=== PATIENT | male | born 1995 | race Caucasian/White ===

== ENCOUNTER 2020-05-13 20:41 | Inpatient (IN) | payer OTHER ==
[~2020-05-13] VITALS: Ht 167.6 cm; Wt 73.2 kg
[~2020-05-13 20:41] MED LIST: ETOMIDATE 20 MG/10 ML ONE; MIDAZOLAM 1 MG/ML, 5ML ONE; PROPOFOL 10 MG/ML, 100ML IV ONE
[2020-05-13] MEDS ORDERED: ZIPRASIDONE 20 MG INJ IM ONE ×2 (20:45→21:00)
[2020-05-13] MEDS ORDERED: ROCURONIUM 10 MG/ML,10ML IVPush ONE (21:00)
[2020-05-13] MEDS ORDERED: MIDAZOLAM 1 MG/ML, 2ML IVPush ONE (21:00)
[2020-05-13] MEDS ORDERED: PLEASE ENTER ALLERGIES MC SCH (21:00)
[2020-05-13] MEDS ORDERED: LORazepam 2 MG/ML, 1ML IVPush ONE (21:00)
[2020-05-13] MEDS ORDERED: PLEASE ENTER HEIGHT AND WEIGHT MC SCH (21:00)
[2020-05-13] MEDS ORDERED: ETOMIDATE 40 MG/20 ML IVPush ONE (21:00)
--- NOTE | 2020-05-13 21:16 | NUR ---
THIS IS A 24 YR OLD MALE AND PER EMS HX OF NARCOTIC OVERDOSE. PT WAS FOUND TO HAVE A ROOM AIR SAT OF 64 AND RESPIRATIONS OF 4. EMS ADMIN 4 MG OF NARCAN TOTAL AND PT WAS BEING BVM. PT BECAME AGGITATED AND COMBATIVE IN AMBULANCE, PT WAS RESTRAINED. EMS ADMIN 4 OF VERSED WITH NO CHANGES. UPON ARRIVAL TO ER PT REMAINS COMBATIVE AND IS RESTRAINED WITH SOFT RESTRAINTS. PT MEDICATED PER VERBAL ORDER FROM MD. PT INTUBATED AT 2111 ET 8.0 AT 24 LIPS. VENT SETTINGS 450 TV, PEEP 10, FIO2 100, RATE 24
[2020-05-13] MEDS ORDERED: FENTANYL PF 100 MCG/2ML ONE (21:27)
[2020-05-13] MEDS ORDERED: LABETALOL 5MG/ML, 20ML IVPush ONE (21:30)
[2020-05-13] MEDS ORDERED: SODIUM CHLORIDE 0.9% 1,000ML IVBOLUS ONE (21:30)
[2020-05-13] MEDS ORDERED: PROPOFOL 100 ML IV PRN (21:30)
[2020-05-13] MEDS ORDERED: MIDAZOLAM 1 MG/ML, 5ML IVPush PRN (21:30)
[2020-05-13] MEDS ORDERED: PIPERACILLIN/TAZO/PMX 3.375GM 50 ML IV ONE (21:30)
[2020-05-13] MEDS ORDERED: LABETALOL 5MG/ML, 20ML ONE (21:32)
[2020-05-13] MEDS ORDERED: FENTANYL PF 100 MCG/2ML IVPush ONE (22:00)
[2020-05-13 22:18] VITALS: BP 165/87
[2020-05-13 22:30] LABS: MEAN CORPUSCULAR HGB CONC 33.9 g/dL (33.2-36.2); PLATELET COUNT 299 x10^3/uL (130-400); RED BLOOD COUNT 5.97 x10^6/uL (4.38-5.82); RED CELL DISTRIBUTION WIDTH 13.4 % (9.4-14.8)
[2020-05-13] MEDS ORDERED: DEXTROSE 4 GM TAB.CHEW PO PRN (22:30)
[2020-05-13] MEDS ORDERED: DEXTROSE 50%, 50ML SYRINGE IVPush PRN (22:30)
[2020-05-13] MEDS ORDERED: NOREPINEPHRINE 8 MG in SODIUM CHLORIDE 0.9% 242 ML IV PRN (22:30)
[2020-05-13] MEDS ORDERED: SENNA/DOCUSATE TABLET NG PRN (22:30)
[2020-05-13] MEDS ORDERED: SENNA 176 MG/5 ML ORAL SOL NG PRN (22:30)
[2020-05-13] MEDS ORDERED: GLUCAGON 1 MG IM PRN (22:30)
[2020-05-13] MEDS ORDERED: PHARMACY MAY ADJ FOR RENAL FX MC SCH (22:30)
[2020-05-13] MEDS ORDERED: LACTULOSE 20 GM/30 ML UDC NG PRN (22:30)
[2020-05-13] MEDS ORDERED: ONDANSETRON 2MG/ML, 2ML IV PRN (22:30)
[2020-05-13] MEDS ORDERED: LIDOCAINE-MPF 1%, 2ML ENDO PRN (22:30)
[2020-05-13] MEDS ORDERED: BISACODYL 10 MG SUPP PR PRN (22:30)
[2020-05-13] MEDS ORDERED: PIPERACILLIN/TAZO/PMX 3.375GM 50 ML ONE (22:36)
[2020-05-13 22:39] LABS: MD YES
[2020-05-13 22:55] LABS: BAND#(MANUAL) 4.71 x10^3/uL; BANDS%(MANUAL) 19 % (0-7); LYMPH#(MANUAL) 1.24 x10^3/uL (1-3.4); LYMPHS% (MANUAL) 5 % (22-44); MONOS#(MANUAL) 0.74 x10^3/uL (0.3-2.7); MONOS% (MANUAL) 3 % (2-9); SEGS% (MANUAL) 73 % (42-75)
[2020-05-13 22:57] LABS: <RBC MORPHOLOGY> NORMAL; PMNS WITH VACUOLES 1+; TOXIC GRAN 1+
[2020-05-13 22:58] LABS: <PLATELET ESTIMATE> ADEQUATE; <PLT MORPHOLOGY> NORMAL PLT MORPH
[2020-05-13] MEDS: SODIUM CHLORIDE FLUSH 10ML SYR IVF SCH (23:00)
[2020-05-13 23:06] LABS: ALANINE AMINOTRANSFERASE 65 U/L (12-78); ALBUMIN 3.1 g/dL (3.4-5.0); ANION GAP 10 mmol/L (5-15); CALCIUM 7.3 mg/dL (8.5-10.1); CHLORIDE 105 mmol/L (98-107)
[2020-05-13 23:09] LABS: ALKALINE PHOSPHATASE 110 U/L (45-117); BILIRUBIN,TOTAL 0.6 mg/dL (0.2-1.0); CREATININE 1.27 mg/dL (0.7-1.3); TOTAL PROTEIN 6.5 g/dL (6.4-8.2)
[2020-05-13 23:11] LABS: SALICYLATE LEVEL < 1.7 mg/dL (2.8-20.0)
[2020-05-13] MEDS: METRONIDAZOLE PMX 500MG/100ML 100 ML IV SCH (23:39)
[2020-05-13] MEDS: SODIUM CHLORIDE 0.9% 1,000 ML IV SCH (23:46)
[2020-05-13] MEDS: HEPARIN 5,000 UNITS/ML, 1ML SQ SCH (23:53)
[2020-05-14 01:21] LABS: AMPHETAMINE SCREEN, URINE Negative (Negative); BARBITURATE SCREEN, URINE Negative (Negative); BENZODIAZEPINE SCREEN, URINE Positive (Negative); CANNABINOID SCREEN, URINE Positive (Negative); COCAINE SCREEN, URINE Negative (Negative); METHADONE SCREEN, URINE Negative (Negative); OPIATE SCREEN, URINE Negative (Negative)
[2020-05-14] MEDS: CEFTRIAXONE PMX 1GM/50ML 50 ML IV SCH (01:26)
[2020-05-14] MEDS: PROPOFOL 100 ML IV PRN ×4 (02:00→14:16)
[2020-05-14 03:54] LABS: MEAN CORPUSCULAR HEMOGLOBIN 31.7 pg (27.5-34.5); MEAN CORPUSCULAR HGB CONC 34.8 g/dL (33.2-36.2); PLATELET COUNT 281 x10^3/uL (130-400); RED BLOOD COUNT 5.47 x10^6/uL (4.38-5.82); RED CELL DISTRIBUTION WIDTH 13.2 % (9.4-14.8)
[2020-05-14] MEDS ORDERED: ACETAMINOPHEN 325 MG TABLET PO PRN (04:00)
[2020-05-14] MEDS ORDERED: SODIUM CHLORIDE 0.9% 1,000ML IVBOLUS ONE (04:00)
[2020-05-14 04:03] LABS: MD YES
[2020-05-14 04:06] LABS: ANION GAP 4 mmol/L (5-15); CALCIUM 6.8 mg/dL (8.5-10.1); CHLORIDE 109 mmol/L (98-107); CREATININE 1.23 mg/dL (0.7-1.3)
[2020-05-14] MEDS: ACETAMINOPHEN 650 MG/20.3 ML UDC PO PRN (04:23)
[2020-05-14 04:52] LABS: BAND#(MANUAL) 2.95 x10^3/uL; BANDS%(MANUAL) 22 % (0-7); LYMPHS% (MANUAL) 6 % (22-44); MONOS#(MANUAL) 0.13 x10^3/uL (0.3-2.7); MONOS% (MANUAL) 1 % (2-9); SEG#(MANUAL) 9.51 x10^3/uL (1.8-6.8); SEGS% (MANUAL) 71 % (42-75)
[2020-05-14 04:53] LABS: <PLATELET ESTIMATE> ADEQUATE; <PLT MORPHOLOGY> NORMAL PLT MORPH; <RBC MORPHOLOGY> NORMAL
[2020-05-14] MEDS: FENTANYL PF 1,000 MCG in SODIUM CHLORIDE 0.9% 80 ML IV PRN ×2 (05:23→14:06)
[2020-05-14] MEDS: METRONIDAZOLE PMX 500MG/100ML 100 ML IV SCH ×3 (05:53→18:41)
[2020-05-14] MEDS ORDERED: MAGNESIUM SULFATE PMX 2GM/50ML 50 ML IV ONE (07:00)
[2020-05-14] MEDS ORDERED: SODIUM POLY SULFONATE UDC 15 GM/60 ML PO ONE (07:00)
[2020-05-14] MEDS: FAMOTIDINE 20 MG/2 ML IVPush SCH ×2 (09:03→19:19)
[2020-05-14] MEDS: CALCIUM CARBONATE 500 MG TAB.CHEW PO SCH ×3 (09:03→19:19)
[2020-05-14] MEDS: HEPARIN 5,000 UNITS/ML, 1ML SQ SCH ×2 (09:03→16:18)
[2020-05-14] MEDS: SODIUM CHLORIDE FLUSH 10ML SYR IVF SCH ×2 (09:03→19:19)
[2020-05-14] MEDS: SODIUM CHLORIDE 0.9% 1,000 ML IV SCH (09:05)
[2020-05-14] MEDS ORDERED: DEXMEDETOMIDINE 400 MCG in SODIUM CHLORIDE 0.9% 96 ML IV PRN (16:00)
[2020-05-15] MEDS: HEPARIN 5,000 UNITS/ML, 1ML SQ SCH ×2 (00:17→08:17)
[2020-05-15] MEDS: METRONIDAZOLE PMX 500MG/100ML 100 ML IV SCH ×3 (00:17→11:55)
[2020-05-15] MEDS: CEFTRIAXONE PMX 1GM/50ML 50 ML IV SCH (02:11)
[2020-05-15 03:47] LABS: BASOPHILS % (AUTO) 0 % (0-1); EOSINOPHILS % (AUTO) 1 % (1-7); LYMPHOCYTES % (AUTO) 19 % (22-44); MEAN CORPUSCULAR HEMOGLOBIN 31.3 pg (27.5-34.5); MEAN CORPUSCULAR HGB CONC 35.1 g/dL (33.2-36.2); MONOCYTES % (AUTO) 8 % (2-9); NEUTROPHILS % (AUTO) 72 % (42-75); PLATELET COUNT 195 x10^3/uL (130-400)
[2020-05-15 03:52] LABS: MD NO
[2020-05-15 03:59] LABS: ANION GAP 5 mmol/L (5-15); CALCIUM 8.1 mg/dL (8.5-10.1); CHLORIDE 111 mmol/L (98-107)
[2020-05-15 04:09] LABS: CREATININE 0.85 mg/dL (0.7-1.3)
[2020-05-15] MEDS: CALCIUM CARBONATE 500 MG TAB.CHEW PO SCH (08:17)
[2020-05-15] MEDS: SODIUM CHLORIDE FLUSH 10ML SYR IVF SCH (08:17)
[2020-05-15] MEDS: ACETAMINOPHEN 650 MG/20.3 ML UDC PO PRN (11:37)
[2020-05-15] MEDS ORDERED: LEVO750T6 PO (11:58)
== END 2020-05-15 13:16 | disposition home or self-care (01) | DRG 917 ==
LOC: MERGE 20:41 → EDBD 20:41 → ED 22:41 → EDIP 22:59 → CCU 23:23
PROVIDERS: ADMIT Family Medicine; ATTEND Internal Medicine
PROC: 0BH17EZ Insertion of Endotracheal Airway into Trachea, Via Natural or Artificial Opening (ICD-10-PCS; principal; 2020-05-13)
PROC: 5A1935Z Respiratory Ventilation, Less than 24 Consecutive Hours (ICD-10-PCS; 2020-05-13)
PROC: 02HV33Z Insertion of Infusion Device into Superior Vena Cava, Percutaneous Approach (ICD-10-PCS; 2020-05-13)
DX: T42.4X1A Poisoning by benzodiazepines, accidental (unintentional), initial encounter (principal); J69.0 Pneumonitis due to inhalation of food and vomit; G93.41 Metabolic encephalopathy; J96.01 Acute respiratory failure with hypoxia; E87.1 Hypo-osmolality and hyponatremia; Z99.11 Dependence on respirator [ventilator] status; R56.9 Unspecified convulsions; I10 Essential (primary) hypertension; R04.0 Epistaxis; E87.5 Hyperkalemia; Y92.89 Other specified places as the place of occurrence of the external cause; Z79.899 Other long term (current) drug therapy
CPT/HCPCS: 36415; 36600; 71045; 80048; 80053; 80299; 80307; 80320; 80329; 82140; 82330; 82803; 83735; 84478; 85025; 87070; 87081; 87205; 93005; 94002; 94003; 96372; 99291; G0378; J0696; J1644; J2250; J2543; J2704; J3010; J3486; G0480; J2060; J3475; J7030; J7050